=== PATIENT | female | born 1955 | race Caucasian/White ===

== ENCOUNTER → 2016-05-26 | Outpatient (REF) | payer OTHER | LOC: M LAB REF 11:46 | PROVIDERS: ATTEND Internal Medicine Gastroenterology | DX: A04.7 Enterocolitis due to Clostridium difficile (principal); R19.7 Diarrhea, unspecified; R10.31 Right lower quadrant pain; Z86.010 Personal history of colon polyps ==

== ENCOUNTER → 2016-05-26 | Outpatient (CLI) | payer OTHER | LOC: M LAB 11:46 | PROVIDERS: ATTEND Nurse Practitioner Family | DX: E11.9 Type 2 diabetes mellitus without complications (principal); E78.4 Other hyperlipidemia; E55.9 Vitamin D deficiency, unspecified ==

== ENCOUNTER → 2016-09-01 | Outpatient (CLI) | payer OTHER ==
[2016-09-01 13:05] LABS: MEAN CORPUSCULAR HEMOGLOBIN 30.7 pg (27.0-33.0); MEAN CORPUSCULAR HGB CONC 33.6 g/dl (32.0-36.5); MEAN CORPUSCULAR VOLUME 91.4 fl (80.0-96.0); RED CELL DISTRIBUTION WIDTH 12.2 % (11.5-14.5); WHITE BLOOD COUNT 5.6 K/mm3 (4.0-10.0)
[2016-09-01 13:25] LABS: ALBUMIN 3.4 GM/DL (3.2-5.2); ALBUMIN/GLOBULIN RATIO 1.17 (1.00-1.93); ALKALINE PHOSPHATASE 97 U/L (45-117); ALT/SGPT 38 U/L (12-78); ANION GAP 6 MEQ/L (8-16); AST/SGOT 28 U/L (15-37); BILIRUBIN,TOTAL 0.6 MG/DL (0.2-1.0); BLOOD UREA NITROGEN 17 MG/DL (7-18); CALCIUM LEVEL 8.1 MG/DL (8.8-10.2); CARBON DIOXIDE LEVEL 29 MEQ/L (21-32); CHLORIDE LEVEL 109 MEQ/L (98-107); CHOLESTEROL LEVEL 148 MG/DL (<200); CREATININE FOR GFR 0.96 MG/DL (0.55-1.02); GLOMERULAR FILTRATION RATE > 60.0 (>45); GLUCOSE, FASTING 86 MG/DL (80-110); POTASSIUM SERUM 3.7 MEQ/L (3.5-5.1); SODIUM LEVEL 144 MEQ/L (136-145); TOTAL PROTEIN 6.3 GM/DL (6.4-8.2); TRIGLYCERIDES LEVEL 119 MG/DL (<150)
== END ==
LOC: M WUC 10:53
PROVIDERS: ATTEND Nurse Practitioner Family
DX: K21.9 Gastro-esophageal reflux disease without esophagitis (principal); E11.9 Type 2 diabetes mellitus without complications; I10 Essential (primary) hypertension; E78.4 Other hyperlipidemia; E55.9 Vitamin D deficiency, unspecified

== ENCOUNTER → 2016-09-17 | Outpatient (REF) | payer OTHER ==
[2016-09-17 17:58] LABS: FOLATE 18.7 NG/ML (>5.4); VITAMIN B12 LEVEL 361 PG/ML (247-911)
[2016-09-17 18:03] LABS: FERRITIN 109 NG/ML (8-252); PERCENT SATURATION 22.6 % (13.2-37.4); T UPTAKE 32 % (30-39); THYROXINE (T4) 9.5 UG/DL (4.5-12.0); TOTAL IRON BINDING CAPACITY 358 UG/DL (250-450)
[2016-09-17 18:27] LABS: MEAN CORPUSCULAR HEMOGLOBIN 30.9 pg (27.0-33.0); MEAN CORPUSCULAR HGB CONC 33.5 g/dl (32.0-36.5); MEAN CORPUSCULAR VOLUME 92.4 fl (80.0-96.0); RED CELL DISTRIBUTION WIDTH 12.3 % (11.5-14.5); RETIC HEMOGLOBIN CONTENT CHr 32.5 PG (24-36); RETICULOCYTE % ADVIA2120 2.2 % (0.5-1.5); WHITE BLOOD COUNT 8.6 K/mm3 (4.0-10.0)
[2016-09-18 09:36] LABS: CONTROL LINE MONO INT CTR LINE PRESENT
== END ==
LOC: M SFHCCLAY 09:32
PROVIDERS: ATTEND Nurse Practitioner Family
DX: D64.9 Anemia, unspecified (principal); R53.83 Other fatigue

== ENCOUNTER → 2017-01-08 | Outpatient (CLI) | payer OTHER ==
[2017-01-08 13:21] LABS: MEAN CORPUSCULAR HEMOGLOBIN 30.4 pg (27.0-33.0); MEAN CORPUSCULAR HGB CONC 33.2 g/dl (32.0-36.5); MEAN CORPUSCULAR VOLUME 91.7 fl (80.0-96.0); RED CELL DISTRIBUTION WIDTH 12.1 % (11.5-14.5); WHITE BLOOD COUNT 6.6 K/mm3 (4.0-10.0)
[2017-01-08 13:57] LABS: ALT/SGPT 38 U/L (12-78); ANION GAP 11 MEQ/L (8-16); BLOOD UREA NITROGEN 15 MG/DL (7-18); CALCIUM LEVEL 8.4 MG/DL (8.8-10.2); CARBON DIOXIDE LEVEL 25 MEQ/L (21-32); CHLORIDE LEVEL 110 MEQ/L (98-107); CREATININE FOR GFR 0.83 MG/DL (0.55-1.02); GLOMERULAR FILTRATION RATE > 60.0 (>45); GLUCOSE, FASTING 111 MG/DL (80-110); POTASSIUM SERUM 4.1 MEQ/L (3.5-5.1); SODIUM LEVEL 146 MEQ/L (136-145)
== END ==
LOC: M LAB 11:52
PROVIDERS: ATTEND Family Medicine
DX: E11.9 Type 2 diabetes mellitus without complications (principal)

== ENCOUNTER → 2017-01-08 | Outpatient (CLI) | payer OTHER ==
--- NOTE | 2017-01-08 11:01 | REP ---
Chest two views HISTORY: Preop Comparison: 11/06/2007 The lungs are clear. The heart is normal in size. The pulmonary vasculature is normal in appearance. Bilateral cervical ribs are present. The bony structure is intact. IMPRESSION: No acute disease.
== END ==
LOC: M CLY 10:31
PROVIDERS: ATTEND Family Medicine
DX: E11.9 Type 2 diabetes mellitus without complications (principal)

== ENCOUNTER → 2017-01-08 | Outpatient (REF) | payer OTHER | LOC: M SFHCCLAY 09:34 | PROVIDERS: ATTEND Family Medicine | DX: E11.9 Type 2 diabetes mellitus without complications (principal); D64.9 Anemia, unspecified ==

== ENCOUNTER → 2017-03-13 | Outpatient (CLI) | payer OTHER ==
--- NOTE | 2017-03-13 10:56 | REP ---
Right upper quadrant sonography: History: Hemangioma of the liver. Comparison hepatic sonography February 15, 2015. Findings: Scanning through right upper quadrant of the abdomen demonstrates multiple mobile calculi in the gallbladder as previously reported. The common bile duct is normal measuring 0.5 cm in greatest diameter. There is evidence of fatty infiltration again noted. No pancreatic abnormalities observed. No significant right renal abnormality or free fluid seen. The right kidney measures 12.5 x 6.5 x 5.4 cm. In the left lobe there is a slightly hypoechoic lesion measuring 5.3 x 3.5 x 3.5 cm. In the right lobe there is a heterogeneous mixed echogenicity predominantly hyperechoic lesion measuring 9.1 x 10.8 x 6.7 cm. These are felt to be unchanged from previous ultrasound imaging studies. By previous history of these have been diagnosed as hemangiomas in the past. Their diameters are similar to April 07, 2014 ultrasound report as well. No new mass lesion is seen in the liver. Impression: 1. Two stable hepatic masses previously diagnosed as hemangioma. 2. Cholelithiasis. 3. Fatty infiltration of the liver. Otherwise unremarkable. Signed by Serjio Ndiaye MD 03/13/2017 01:13 P
== END ==
LOC: M RAD 08:50
PROVIDERS: ATTEND Internal Medicine Gastroenterology
DX: D18.03 Hemangioma of intra-abdominal structures (principal); D64.9 Anemia, unspecified; R19.7 Diarrhea, unspecified; K76.0 Fatty (change of) liver, not elsewhere classified; K80.20 Calculus of gallbladder without cholecystitis without obstruction

== ENCOUNTER → 2017-04-19 | Outpatient (REF) | payer OTHER | LOC: M LAB REF 18:11 | PROVIDERS: ATTEND Physician Assistant | DX: R30.0 Dysuria (principal) ==

== ENCOUNTER 2017-05-15 09:30 | Outpatient (RCR) | payer OTHER | END 2017-06-03 | LOC: M PT 09:30 | DX: Z51.89 Encounter for other specified aftercare (principal); M75.42 Impingement syndrome of left shoulder; M75.102 Unspecified rotator cuff tear or rupture of left shoulder, not specified as traumatic | CPT/HCPCS: 97140 ==

== ENCOUNTER → 2017-06-01 | Outpatient (CLI) | payer OTHER ==
[2017-06-01 13:13] LABS: CHOLESTEROL LEVEL 147 MG/DL (<200); CHOLESTEROL RISK RATIO 2.491 (<5); HDL CHOLESTEROL 59 MG/DL (>40); LDL CHOLESTEROL 64.2 MG/DL (<100); NON-HDL-C 88 MG/DL; TRIGLYCERIDES LEVEL 119 MG/DL (<150)
[2017-06-01 13:18] LABS: ESTIMATED AVERAGE GLUCOSE 120 MG/DL (60-110); HEMOGLOBIN A1c 5.8 %
[2017-06-01 13:26] LABS: TOTAL 25(OH) VITAMIN D 46.4 NG/ML (30.0-100.0)
[2017-06-01 13:27] LABS: MALB URINE SIEMENS 7.9 MG/L; MAU/CREAT RATIO 5.3 MCG/MG (0.0-30.0); TOTAL PROTEIN,RANDOM URINE 10.2 MG/DL (0.0-12.0)
== END ==
LOC: M WUC 10:08
DX: E55.9 Vitamin D deficiency, unspecified (principal); E78.4 Other hyperlipidemia; E11.9 Type 2 diabetes mellitus without complications
CPT/HCPCS: 83036

== ENCOUNTER 2017-06-19 12:41 | Outpatient (RCR) | payer OTHER | END 2017-07-01 | LOC: M PT 12:41 | DX: Z51.89 Encounter for other specified aftercare (principal); M75.42 Impingement syndrome of left shoulder; M25.512 Pain in left shoulder; M75.102 Unspecified rotator cuff tear or rupture of left shoulder, not specified as traumatic | CPT/HCPCS: 97140 ==

== ENCOUNTER → 2017-10-04 | Outpatient (CLI) | payer OTHER ==
[2017-10-04 17:52] LABS: HEMATOCRIT 32.7 % (36.0-47.0); HEMOGLOBIN 10.9 g/dl (12.0-15.5); MEAN CORPUSCULAR HEMOGLOBIN 30.2 pg (27.0-33.0); MEAN CORPUSCULAR HGB CONC 33.3 g/dl (32.0-36.5); MEAN CORPUSCULAR VOLUME 90.6 fl (80.0-96.0); PLATELET COUNT, AUTOMATED 330 10^3/uL (150-450); RED BLOOD COUNT 3.61 10^6/uL (4.00-5.40); RED CELL DISTRIBUTION WIDTH 12.1 % (11.5-14.5); WHITE BLOOD COUNT 9.8 10^3/uL (4.0-10.0)
[2017-10-04 18:03] LABS: ALBUMIN 3.7 GM/DL (3.2-5.2); ALBUMIN/GLOBULIN RATIO 1.16 (1.00-1.93); ALKALINE PHOSPHATASE 77 U/L (45-117); ALT/SGPT 33 U/L (12-78); ANION GAP 10 MEQ/L (8-16); AST/SGOT 24 U/L (7-37); BILIRUBIN,TOTAL 0.9 MG/DL (0.2-1.0); BLOOD UREA NITROGEN 20 MG/DL (7-18); CALCIUM LEVEL 9.1 MG/DL (8.8-10.2); CARBON DIOXIDE LEVEL 26 MEQ/L (21-32); CHLORIDE LEVEL 108 MEQ/L (98-107); CHOLESTEROL LEVEL 153 MG/DL (<200); CHOLESTEROL RISK RATIO 3.326 (<5); CREATININE FOR GFR 0.89 MG/DL (0.55-1.30); GLOMERULAR FILTRATION RATE > 60.0 (>45); GLUCOSE, FASTING 91 MG/DL (70-100); HDL CHOLESTEROL 46 MG/DL (>40); NON-HDL-C 107 MG/DL; POTASSIUM SERUM 3.5 MEQ/L (3.5-5.1); SODIUM LEVEL 144 MEQ/L (136-145); TOTAL PROTEIN 6.9 GM/DL (6.4-8.2); TRIGLYCERIDES LEVEL 155 MG/DL (<150)
[2017-10-04 19:34] LABS: ESTIMATED AVERAGE GLUCOSE 123 MG/DL (60-110); HEMOGLOBIN A1c 5.9 %
[2017-10-05 10:35] LABS: TOTAL 25(OH) VITAMIN D 26.7 NG/ML (30.0-100.0)
== END ==
LOC: M WUC 10:38
DX: I10 Essential (primary) hypertension (principal); E11.9 Type 2 diabetes mellitus without complications; E78.4 Other hyperlipidemia; E55.9 Vitamin D deficiency, unspecified
CPT/HCPCS: 80053

== ENCOUNTER 2017-10-07 10:46 | Outpatient (RCR) | payer OTHER | END 2017-10-31 | LOC: M PT 10:46 | DX: Z51.89 Encounter for other specified aftercare (principal); S46.002D Unspecified injury of muscle(s) and tendon(s) of the rotator cuff of left shoulder, subsequent encounter | CPT/HCPCS: 97163 ==

== ENCOUNTER → 2017-11-07 | Outpatient (CLI) | payer OTHER ==
[2017-11-07 19:32] LABS: FERRITIN 109 NG/ML (8-252); IRON (FE) 102 UG/DL (50-170); PERCENT SATURATION 28.5 % (13.2-45.0); TOTAL IRON BINDING CAPACITY 358 UG/DL (250-450)
[2017-11-07 19:37] LABS: HEMATOCRIT 34.9 % (36.0-47.0); HEMOGLOBIN 11.5 g/dl (12.0-15.5); MEAN CORPUSCULAR HEMOGLOBIN 30.2 pg (27.0-33.0); MEAN CORPUSCULAR VOLUME 91.6 fl (80.0-96.0); PLATELET COUNT, AUTOMATED 249 10^3/uL (150-450); RED BLOOD COUNT 3.81 10^6/uL (4.00-5.40); RED CELL DISTRIBUTION WIDTH 12.2 % (11.5-14.5); RETICULOCYTE # 77.3 10^9/L (17-77); WHITE BLOOD COUNT 6.4 10^3/uL (4.0-10.0)
[2017-11-09 10:45] LABS: VITAMIN B12 LEVEL 331 PG/ML (247-911)
[2017-11-09 10:46] LABS: FOLATE 15.9 NG/ML (>5.4)
== END ==
LOC: M WUC 14:14
DX: D64.9 Anemia, unspecified (principal)
CPT/HCPCS: 82746

== ENCOUNTER → 2018-02-15 | Outpatient (CLI) | payer OTHER | LOC: M WUC 16:10 | DX: M79.661 Pain in right lower leg (principal) ==

== ENCOUNTER → 2018-02-20 | Outpatient (CLI) | payer OTHER ==
[2018-02-20 12:42] LABS: HEMATOCRIT 34.6 % (36.0-47.0); HEMOGLOBIN 11.6 g/dl (12.0-15.5); MEAN CORPUSCULAR HEMOGLOBIN 30.2 pg (27.0-33.0); MEAN CORPUSCULAR HGB CONC 33.5 g/dl (32.0-36.5); MEAN CORPUSCULAR VOLUME 90.1 fl (80.0-96.0); PLATELET COUNT, AUTOMATED 249 10^3/uL (150-450); RED BLOOD COUNT 3.84 10^6/uL (4.00-5.40); RETIC HEMOGLOBIN EQUIVALENT 34.5 pg (24-36); RETICULOCYTE % 1.9 % (0.5-1.5); WHITE BLOOD COUNT 5.3 10^3/uL (4.0-10.0)
[2018-02-20 13:00] LABS: FERRITIN 111 NG/ML (8-252); IRON (FE) 63 UG/DL (50-170); PERCENT SATURATION 17.1 % (13.2-45.0); TOTAL IRON BINDING CAPACITY 368 UG/DL (250-450)
[2018-02-22 10:12] LABS: FOLATE 19.1 NG/ML (>5.4)
== END ==
LOC: M WUC 08:18
DX: R42 Dizziness and giddiness (principal); I10 Essential (primary) hypertension; E78.2 Mixed hyperlipidemia; E11.9 Type 2 diabetes mellitus without complications; E55.9 Vitamin D deficiency, unspecified
CPT/HCPCS: 82746

== ENCOUNTER 2018-04-07 10:48 | Outpatient (RCR) | payer OTHER | END 2018-05-03 | LOC: M PT 10:48 | PROVIDERS: ATTEND Orthopaedic Surgery | DX: Z47.89 Encounter for other orthopedic aftercare (principal); M75.42 Impingement syndrome of left shoulder; M25.512 Pain in left shoulder; M75.102 Unspecified rotator cuff tear or rupture of left shoulder, not specified as traumatic ==

== ENCOUNTER → 2018-05-06 | Outpatient (REF) | payer OTHER ==
[~2018-05-06] MED LIST: ASPI1TAB PO; FENO48TA2 PO; FLON1SPR; IBUP80TA PO; LOSA100T5 PO; PROAAER10 INH; RANI15TA PO; REFR0.1D OD; XIID5DRO OS; ZOLO25TA PO
[2018-05-06 17:38] LABS: HEMATOCRIT 38.9 % (36.0-47.0); HEMOGLOBIN 13.2 g/dl (12.0-15.5); MEAN CORPUSCULAR HEMOGLOBIN 30.4 pg (27.0-33.0); MEAN CORPUSCULAR HGB CONC 33.9 g/dl (32.0-36.5); MEAN CORPUSCULAR VOLUME 89.6 fl (80.0-96.0); PLATELET COUNT, AUTOMATED 324 10^3/uL (150-450); RED BLOOD COUNT 4.34 10^6/uL (4.00-5.40); WHITE BLOOD COUNT 6.7 10^3/uL (4.0-10.0)
[2018-05-06 17:46] LABS: ALBUMIN 3.9 GM/DL (3.2-5.2); ALT/SGPT 41 U/L (12-78); BILIRUBIN,TOTAL 0.8 MG/DL (0.2-1.0); BLOOD UREA NITROGEN 21 MG/DL (7-18); CALCIUM LEVEL 9.2 MG/DL (8.8-10.2); CARBON DIOXIDE LEVEL 26 MEQ/L (21-32); CHLORIDE LEVEL 106 MEQ/L (98-107); CHOLESTEROL LEVEL 257 MG/DL (<200); CHOLESTEROL RISK RATIO 4.079 (<5); CREATININE FOR GFR 0.94 MG/DL (0.55-1.30); GLOMERULAR FILTRATION RATE > 60.0 (>45); GLUCOSE, FASTING 98 MG/DL (70-100); HDL CHOLESTEROL 63 MG/DL (>40); LDL CHOLESTEROL 148 MG/DL (<100); NON-HDL-C 194 MG/DL; SODIUM LEVEL 141 MEQ/L (136-145); TOTAL PROTEIN 7.3 GM/DL (6.4-8.2); TRIGLYCERIDES LEVEL 231 MG/DL (<150)
[2018-05-06 17:55] LABS: TOTAL 25(OH) VITAMIN D 26.6 NG/ML (30.0-100.0)
[2018-05-06 19:28] LABS: HEMOGLOBIN A1c 5.8 %
[2018-05-06 19:29] LABS: MALB URINE SIEMENS 7.2 MG/L; MAU/CREAT RATIO 5.7 MCG/MG (0.0-30.0)
== END ==
LOC: M SFHCCLAY 10:49
PROVIDERS: ATTEND Nurse Practitioner Family
DX: Z01.818 Encounter for other preprocedural examination (principal); I10 Essential (primary) hypertension; E11.9 Type 2 diabetes mellitus without complications; E78.49 Other hyperlipidemia; E55.9 Vitamin D deficiency, unspecified

== ENCOUNTER → 2018-05-06 | Outpatient (CLI) | payer OTHER ==
--- NOTE | 2018-05-06 20:41 | REP ---
Clinical: Preoperative assessment . Comparison: 01/08/2017 . Technique: PA and lateral. Findings: The mediastinum and cardiac silhouette are normal. The lung klein are clear and without acute consolidation, effusion, or pneumothorax. The skeletal structures are intact and normal. Impression: 1. No acute cardiopulmonary process. Electronically Signed by Ulysses Floyd MD 05/06/2018 08:33 P
== END ==
LOC: M CLY 10:54
PROVIDERS: ATTEND Nurse Practitioner Family
DX: Z01.818 Encounter for other preprocedural examination (principal)

== ENCOUNTER 2018-05-24 06:02 | Day surgery (SDC) | payer OTHER ==
[~2018-05-24] VITALS: Ht 167.6 cm; Wt 88.5 kg
[~2018-05-24 06:02] MED LIST changes: +LR 1,000 ML IV ONE; +ceFAZolin SOD 1 GM in D5W MINI-BAG PLUS 50 ML IV ONE
[2018-05-24] MEDS ORDERED: fentaNYL 250 MCG/5 ML INJECTION (J3010) As Ordered ONE (07:08)
[2018-05-24] MEDS ORDERED: dexameTHASONE 4 MG/ML 1ML VIAL (J1100) As Ordered ONE (07:08)
[2018-05-24] MEDS ORDERED: MIDAZOLAM INJ 2 MG/2 ML VIAL (J2250) As Ordered ONE (07:08)
[2018-05-24] MEDS ORDERED: ONDANSETRON 4MG/2ML VIAL (J2405) As Ordered ONE (07:08)
[2018-05-24] MEDS ORDERED: ROCURONIUM BROMIDE 50 MG/5 ML VIAL As Ordered ONE (07:09)
[2018-05-24] MEDS ORDERED: PROPOFOL 200 MG/20 ML VIAL As Ordered ONE (07:09)
[2018-05-24] MEDS ORDERED: LIDOCAINE 2% INJ 100 MG/5 ML SDV (FOR ANES.) As Ordered ONE (07:09)
[2018-05-24] MEDS ORDERED: LIDOCAINE W/EPINEPHRINE 1% 20ML VIAL As Ordered ONE (07:13)
[2018-05-24] MEDS ORDERED: LIDOCAINE 1% MDV 20ML VIAL As Ordered ONE (07:13)
[2018-05-24] MEDS ORDERED: BACITRACIN OINT 30GM As Ordered ONE (07:13)
[2018-05-24] MEDS ORDERED: LIDOCAINE 2% W/EPIN INJ 20ML **PRES FREE As Ordered ONE (07:13)
[2018-05-24] MEDS ORDERED: KETOROLAC 60 MG/2 ML VIAL (J1885) As Ordered ONE (08:09)
--- NOTE | 2018-05-24 08:52 | POST-OPPD ---
Postoperative Procedure Note Date Of Procedure: May 24, 2018 PREOPERATIVE DIAGNOSIS: Lower lip mass POSTOPERATIVE DIAGNOSIS: same FINDINGS: 1 cm lower lip mass PROCEDURE: Excision lower lip mass SURGEON: Dr Baugh GROUND SERVICE EQUIPMENT MECHANIC: none ANESTHESIA: Local with sedation SPECIMENS: lower lip mass ESTIMATED BLOOD LOSS: 1 cc REPLACED: none DRAINS: none COMPLICATIONS: none POSTOPERATIVE CONDITION: Stable to ASU HARVINDER BAUGH DO May 24, 2018 08:52
[2018-05-24 09:25] VITALS: BP 128/62
--- NOTE | 2018-05-25 14:06 | RO ---
DATE OF PROCEDURE: 05/24/2018 PREPROCEDURE DIAGNOSIS: Lower lip mass. POSTPROCEDURE DIAGNOSIS: Lower lip mass. PROCEDURE: Excision of lower lip mass. SURGEON: Dr. Fuad Sher. TRAVEL MANAGER: None. ANESTHESIA: Local with sedation. SPECIMEN SENT: Lower lip mass. ESTIMATED BLOOD LOSS: 1 mL. COMPARISON: None. Patient stable to the recovery room. DESCRIPTION OF PROCEDURE: This is a 62-year-old female who developed gradually growing lower lip mass that was becoming visible right on her lower lip right at the lip border measuring 1 x 1. Patient wished to have it excised. The risk and benefits and alternatives were discussed with the patient and she is ready to proceed. She presented to the operating room. Preoperative antibiotics were given. The sequential stockings were placed on the lower calves. Sedation given to the patient. She was prepped and draped in the usual sterile fashion. We gave her a mantle block with 2% with epinephrine and a little infiltration around the lip. The elliptical incision was created through the most prominent portion of the mass in a vertical fashion, along the lip creases. The incision carried out using 10-blade. A hard mass was identified which looks like a scar but I was able to extract it using blunt and sharp dissection. The orbicularis muscle is intact in good condition. The wound was irrigated and then the edges were approximated with #5-0 chromic sutures. The subcuticular layer with interrupted, dermis was closed with interrupted #6-0 plain suture. The small dog ear was excised as well and sent for the pathology. Minimal bleeding. Patient tolerated the procedure well and was sent to the recovery room in stable condition.
== END 2018-05-24 09:50 | disposition home or self-care (01) ==
LOC: M SDC 06:02
PROVIDERS: ATTEND Plastic Surgery Surgery of the Hand
DX: D18.09 Hemangioma of other sites (principal); I10 Essential (primary) hypertension; E78.00 Pure hypercholesterolemia, unspecified; K80.20 Calculus of gallbladder without cholecystitis without obstruction; K21.9 Gastro-esophageal reflux disease without esophagitis; D64.9 Anemia, unspecified; J45.990 Exercise induced bronchospasm; I89.0 Lymphedema, not elsewhere classified; E73.9 Lactose intolerance, unspecified; Z88.1 Allergy status to other antibiotic agents; Z88.5 Allergy status to narcotic agent; Z79.899 Other long term (current) drug therapy; Z79.82 Long term (current) use of aspirin; Z86.19 Personal history of other infectious and parasitic diseases; Z90.710 Acquired absence of both cervix and uterus
CPT/HCPCS: 11442; 88305; J0690; J1100; J1885; J2250; J2405; J3010

== ENCOUNTER → 2018-07-12 | Outpatient (REF) | payer MEDICARE, OTHER ==
[~2018-07-12] MED LIST changes: -LR 1,000 ML IV ONE; -ceFAZolin SOD 1 GM in D5W MINI-BAG PLUS 50 ML IV ONE
== END ==
LOC: M SFHCCLAY 11:01
PROVIDERS: ATTEND Family Medicine
DX: E78.49 Other hyperlipidemia (principal); Z53.8 Procedure and treatment not carried out for other reasons

== ENCOUNTER → 2018-07-14 | Outpatient (REF) | payer MEDICARE, OTHER ==
[2018-07-14 11:58] LABS: CHOLESTEROL RISK RATIO 3.137 (<5)
== END ==
LOC: M SFHCCLAY 08:07
PROVIDERS: ATTEND Family Medicine
DX: I10 Essential (primary) hypertension (principal); E78.49 Other hyperlipidemia

== ENCOUNTER → 2018-07-23 | Outpatient (CLI) | payer MEDICARE, OTHER ==
[~2018-07-23] MED LIST changes: -ASPI1TAB PO; +ASPI81TA26 PO
--- NOTE | 2018-07-23 11:59 | REP ---
CERVICAL SPINE, EIGHT VIEWS: HISTORY: Neck and right arm pain. The cervical spine is visualized from C1 to the C5-6 level in the lateral radiographs. There is no acute fracture or subluxation. The C3-4 through C5-6 intervertebral discs are decreased in height consistent with disc degeneration. Osteophytes are present on C5 and 6. There is narrowing of the C4 and 5 neural foramina secondary to uncinate process hypertrophy. IMPRESSION: Degenerative change as described above.
== END ==
LOC: M CLY 08:52
PROVIDERS: ATTEND Nurse Practitioner Family
DX: M50.31 Other cervical disc degeneration, high cervical region (principal); M50.321 Other cervical disc degeneration at C4-C5 level; M50.322 Other cervical disc degeneration at C5-C6 level; M25.78 Osteophyte, vertebrae
CPT/HCPCS: 72050; G0463

== ENCOUNTER → 2018-09-03 | Outpatient (CLI) | payer MEDICARE, OTHER ==
[2018-09-03 13:16] LABS: ALBUMIN 3.8 GM/DL (3.2-5.2); BILIRUBIN,DIRECT 0.1 MG/DL (0.0-0.2); BILIRUBIN,TOTAL 0.6 MG/DL (0.2-1.0); TOTAL PROTEIN 6.7 GM/DL (6.4-8.2)
== END ==
LOC: M WUC 11:13
PROVIDERS: ATTEND Internal Medicine Gastroenterology
DX: D18.03 Hemangioma of intra-abdominal structures (principal); Z86.010 Personal history of colon polyps; E73.9 Lactose intolerance, unspecified

== ENCOUNTER 2018-10-20 10:41 | Outpatient (RCR) | payer MEDICARE, OTHER | END 2018-10-31 | LOC: M PT 10:41 | PROVIDERS: ATTEND Orthopaedic Surgery | DX: M75.42 Impingement syndrome of left shoulder (principal); M25.512 Pain in left shoulder; M75.102 Unspecified rotator cuff tear or rupture of left shoulder, not specified as traumatic ==

== ENCOUNTER → 2018-11-19 | Outpatient (CLI) | payer MEDICARE, OTHER ==
--- NOTE | 2018-11-19 10:20 | REP ---
PA and lateral chest: Comparison is 05/06/2018. The lung klein are clear. The cardiac size is normal. The rafaela, mediastinum, and skeletal structures are unremarkable. There is an orthopedic anchor screw in the left humeral head, unchanged. Impression: Negative PA and lateral chest. There is no interval change. Electronically Signed by Rodrigo Almazan MD 11/19/2018 10:12 A
== END ==
LOC: M CLY 09:10
PROVIDERS: ATTEND Nurse Practitioner Family
DX: J40 Bronchitis, not specified as acute or chronic (principal)
CPT/HCPCS: 71046; G0463

== ENCOUNTER → 2019-02-16 | Outpatient (CLI) | payer MEDICARE, OTHER ==
[~2019-02-16] MED LIST changes: +FENO48TA13 PO; -FENO48TA2 PO
--- NOTE | 2019-02-16 11:30 | REP ---
Five views lumbar spine: 02/16/2019. Indication: New low back pain. Pain. Comparison: None. New new findings: There is no fracture, subluxation or dislocation. Surgical clips are noted anterior to the L5 vertebral body. Endplate degenerative changes are present throughout most pronounced at L4/L5. The neural foramen appear patent. Impression: No fracture. Electronically Signed by Justyn Rossi DO 02/16/2019 11:22 A
--- NOTE | 2019-02-16 14:47 | REP ---
REASON FOR EXAM: Pain. COMPARISON EXAMINATION: 02/15/2018. There is no history of trauma. FINDINGS: No acute fracture or destructive osseous lesion. There is no change compared to the prior exam. Note is made of a large retrocalcaneal heel spur. Electronically Signed by Scott Lomeli DO 02/16/2019 02:57 P
== END ==
LOC: M CLY 10:10
PROVIDERS: ATTEND Nurse Practitioner Family
DX: M51.36 Other intervertebral disc degeneration, lumbar region (principal); M79.604 Pain in right leg
CPT/HCPCS: 72110; 73590; G0463

== ENCOUNTER → 2019-02-22 | Outpatient (CLI) | payer MEDICARE, OTHER ==
--- NOTE | 2019-02-23 08:36 | REP ---
MRI lumbar spine: 02/22/2019. Indication: Low back pain. Lumbar radiculopathy. Comparison: None. Technique: Short and long TR sequences of the lumbar spine were obtained without IV Gadolinium. Findings: There is minimal retrolisthesis of L2 and L3 and L3 and L4 as well as minimal anterolisthesis of L4 and L5. No worrisome marrow signal is present. The visualized spinal cord is unremarkable. No significant paraspinal soft tissue abnormalities are present. L1/L2: There is no disc herniation or significant spinal canal / neural foraminal narrowing. L2/L3: There is a posterior central disc extrusion superimposed on a diffuse disc bulge with 8 mm of caudal migration. There is moderate to severe bilateral recess narrowing, particularly on the left. Mild bilateral neural foraminal narrowing is present. L3/L4: Diffuse disc and spur complex and bilateral facet arthropathy are present with ligamental laxity. There is moderate to severe bilateral recess narrowing. Mild to moderate bilateral neural foraminal narrowing is present. L4/L5: There is a far right lateral disc extrusion with cephalad migration and compression of the exiting L4 nerve root best appreciated on the sagittal T1 sequence image/page 13. The disc herniation is superimposed on a diffuse disc bulge. Significant bilateral facet arthropathy is present with moderate to severe right greater than left recess narrowing. There is mild narrowing of the left neural foramen. L5/S1: Bilateral facet arthropathy is present without significant spinal canal or neural foraminal narrowing. Impression: Far right lateral L4/L5 disc herniation as described. Posterior central L2/L3 disc herniation as described. Additional multilevel degenerative sequelae. Please see above. Electronically Signed by Justyn Rossi DO 02/23/2019 08:29 A
== END ==
LOC: M RAD 17:36
PROVIDERS: ATTEND Nurse Practitioner Family
DX: M51.37 Other intervertebral disc degeneration, lumbosacral region (principal); M51.36 Other intervertebral disc degeneration, lumbar region; M25.78 Osteophyte, vertebrae; M51.26 Other intervertebral disc displacement, lumbar region; M54.41 Lumbago with sciatica, right side

== ENCOUNTER 2019-04-18 10:37 | Outpatient (RCR) | payer MEDICARE, OTHER | END 2019-05-03 | LOC: M PT 10:37 | PROVIDERS: ATTEND Orthopaedic Surgery | DX: M75.102 Unspecified rotator cuff tear or rupture of left shoulder, not specified as traumatic (principal); M75.42 Impingement syndrome of left shoulder; M25.512 Pain in left shoulder ==

== ENCOUNTER → 2019-06-16 | Outpatient (CLI) | payer MEDICARE, OTHER ==
[~2019-06-16] MED LIST changes: -FENO48TA13 PO; +FENO48TA7 PO
[2019-06-16 10:23] LABS: HEMATOCRIT 43.8 % (36.0-47.0); MEAN CORPUSCULAR HEMOGLOBIN 29.2 pg (27.0-33.0); MEAN CORPUSCULAR VOLUME 91.4 fl (80.0-96.0); PLATELET COUNT, AUTOMATED 369 10^3/uL (150-450); RED BLOOD COUNT 4.79 10^6/uL (4.00-5.40); WHITE BLOOD COUNT 12.2 10^3/uL (4.0-10.0)
[2019-06-16 10:53] LABS: ALBUMIN 3.5 GM/DL (3.2-5.2); ALT/SGPT 43 U/L (12-78); BILIRUBIN,TOTAL 0.7 MG/DL (0.2-1.0); BLOOD UREA NITROGEN 28 MG/DL (7-18); CALCIUM LEVEL 8.7 MG/DL (8.8-10.2); CARBON DIOXIDE LEVEL 28 MEQ/L (21-32); CHLORIDE LEVEL 104 MEQ/L (98-107); CHOLESTEROL LEVEL 193 MG/DL (<200); CHOLESTEROL RISK RATIO 2.443 (<5); CREATININE FOR GFR 0.96 MG/DL (0.55-1.30); FERRITIN 128 NG/ML (8-252); GLOMERULAR FILTRATION RATE > 60.0 (>45); GLUCOSE, FASTING 86 MG/DL (70-100); HDL CHOLESTEROL 79 MG/DL (>40); LDL CHOLESTEROL 88 MG/DL (<100); NON-HDL-C 114 MG/DL; POTASSIUM SERUM 3.6 MEQ/L (3.5-5.1); SODIUM LEVEL 140 MEQ/L (136-145); TOTAL PROTEIN 6.7 GM/DL (6.4-8.2); TRIGLYCERIDES LEVEL 129 MG/DL (<150)
[2019-06-16 11:01] LABS: MALB URINE SIEMENS 8.9 MG/L; MAU/CREAT RATIO 7.3 MCG/MG (0.0-30.0)
[2019-06-16 11:02] LABS: TOTAL 25(OH) VITAMIN D 34.6 NG/ML (30.0-100.0)
== END ==
LOC: M LAB 08:51
PROVIDERS: ATTEND Nurse Practitioner Family
DX: D64.9 Anemia, unspecified (principal); I10 Essential (primary) hypertension; E11.9 Type 2 diabetes mellitus without complications; E78.5 Hyperlipidemia, unspecified; E55.9 Vitamin D deficiency, unspecified; H90.A21 Sensorineural hearing loss, unilateral, right ear, with restricted hearing on the contralateral side

== ENCOUNTER → 2019-06-16 | Outpatient (CLI) | payer MEDICARE, OTHER ==
[2019-06-16 10:49] LABS: BLOOD UREA NITROGEN 28 MG/DL (7-18); CREATININE FOR GFR 0.98 MG/DL (0.55-1.30); GLOMERULAR FILTRATION RATE > 60.0 (>45)
== END ==
LOC: M LAB 09:02
PROVIDERS: ATTEND Otolaryngology
DX: H90.A21 Sensorineural hearing loss, unilateral, right ear, with restricted hearing on the contralateral side (principal)

== ENCOUNTER → 2019-06-17 | Outpatient (CLI) | payer MEDICARE, OTHER ==
[~2019-06-17] MED LIST changes: +PROHANCE 279.3MG/ML 15ML VIAL (A9576) As Ordered ONE; +PROHANCE 279.3MG/ML 5ML VIAL (A9576) As Ordered ONE
--- NOTE | 2019-06-17 17:31 | REPVR ---
PROCEDURE INFORMATION: Exam: MR Head Without and With Contrast; Internal Auditory Canals Exam date and time: 06/17/2019 4:04 PM Age: 63 years old Clinical indication: Other: Sudden hearing loss; Prior surgery; Surgery date: 6+ months; Surgery type: Removal of meningioma 10 plus years ago; Additional info: H90.42 hearing loss, snsrnrl hear loss, uni, left ear, TECHNIQUE: Imaging protocol: MR of the head without and with intravenous contrast. Exam focused on the internal auditory canals. 3D rendering: MIP and/or 3D reconstructed images were created by the technologist. Contrast material: PROHANCE; Contrast volume: 16 ml; Contrast route: IV; COMPARISON: No relevant prior studies available. FINDINGS: Brain: No acute infarct identified on the diffusion-weighted imaging. Areas of right frontal and temporal lobe encephalomalacia. Cerebral and cerebellar volume appear otherwise preserved for age. A few patchy foci of increased signal intensity in the deep white matter on the T2 weighted imaging most likely representing trace chronic small vessel ischemic change. No significant white matter disease for the patient's age. No evidence of residual or recurrent meningioma on the postcontrast imaging. Ventricles: There is ex vacuo enlargement of the temporal horn of the right lateral ventricle. Mastoid air cells: Unremarkable. No effusions. Internal auditory canals: Unremarkable. 7th and 8th cranial nerves are unremarkable. No abnormal masses. Bones/joints: Prior right craniotomy. IMPRESSION: 1. No acute intracranial abnormality. 2. No evidence of residual or recurrent meningioma. 3. No evidence of IAC or cerebellopontine angle mass. Electronically signed by: Eva Malik On 06/17/2019 17:30:56 PM
== END ==
LOC: M RAD 14:37
PROVIDERS: ATTEND Otolaryngology
DX: H90.42 Sensorineural hearing loss, unilateral, left ear, with unrestricted hearing on the contralateral side (principal)
CPT/HCPCS: 70553; A9576

== ENCOUNTER 2019-09-14 09:43 | Emergency (ER) | payer MEDICARE, OTHER ==
[~2019-09-14] VITALS: Ht 170.2 cm; Wt 99.7 kg
[~2019-09-14 09:43] MED LIST changes: -PROHANCE 279.3MG/ML 15ML VIAL (A9576) As Ordered ONE; -PROHANCE 279.3MG/ML 5ML VIAL (A9576) As Ordered ONE
[2019-09-14] MEDS ORDERED: CLAR10CA3 PO (10:10)
[2019-09-14] MEDS ORDERED: FLUV80TA (10:10)
[2019-09-14] MEDS ORDERED: VITA50005 (10:10)
[2019-09-14] MEDS ORDERED: BREO1INH (10:10)
[2019-09-14] MEDS ORDERED: TRIC145T22 PO (10:10)
[2019-09-14] MEDS ORDERED: GI COCKTAIL 50ML BTL(HYOSCYAMINE/MAALOX/LIDOCAINE VISCOUS)(1:3:1) PO ONE (10:15)
--- NOTE | 2019-09-14 11:47 | REP ---
CHEST, SINGLE VIEW: There is no evidence of acute infiltrate. No pleural effusion is seen. The heart is normal in size. The mediastinal silhouette is unremarkable. The visualized osseous structures are intact. IMPRESSION: No acute pulmonary disease. Electronically Signed by Rodrigo Brar MD 09/14/2019 12:50 P
[2019-09-14 12:47] LABS: BASO # 0.1 10^3/uL (0.0-0.2); BASO % 1.2 % (0.0-1.0); EOS # 0.3 10^3/uL (0.0-0.5); HEMATOCRIT 39.3 % (36.0-47.0); HEMOGLOBIN 13.2 g/dl (12.0-15.5); LYMPH # 1.4 10^3/uL (1.5-5.0); LYMPH % 19.7 % (24.0-44.0); MEAN CORPUSCULAR HEMOGLOBIN 29.9 pg (27.0-33.0); MEAN CORPUSCULAR HGB CONC 33.6 g/dl (32.0-36.5); MEAN CORPUSCULAR VOLUME 88.9 fl (80.0-96.0); MONO # 0.6 10^3/uL (0.0-0.8); MONO % 8.7 % (0.0-5.0); NEUTROPHILS # 4.8 10^3/uL (1.5-8.5); NEUTROPHILS % 66.1 % (36.0-66.0); PLATELET COUNT, AUTOMATED 294 10^3/uL (150-450); RED BLOOD COUNT 4.42 10^6/uL (4.00-5.40); WHITE BLOOD COUNT 7.3 10^3/uL (4.0-10.0)
[2019-09-14 12:58] LABS: INR 0.99; PROTHROMBIN TIME 12.8 SECONDS (11.8-14.0)
[2019-09-14 12:59] LABS: PARTIAL THROMBOPLASTIN TIME 24.5 SECONDS (25.0-38.4)
[2019-09-14 13:27] LABS: ALBUMIN 4.1 GM/DL (3.2-5.2); ALT/SGPT 40 U/L (12-78); BILIRUBIN,DIRECT 0.2 MG/DL (0.0-0.2); BILIRUBIN,TOTAL 0.7 MG/DL (0.2-1.0); BLOOD UREA NITROGEN 26 MG/DL (7-18); CALCIUM LEVEL 9.8 MG/DL (8.8-10.2); CARBON DIOXIDE LEVEL 26 MEQ/L (21-32); CHLORIDE LEVEL 108 MEQ/L (98-107); CK-MB VALUE MASS 4.1 NG/ML (<3.6); CPK CREATINE PHOSPHOKINASE 347 U/L (26-192); CREATININE FOR GFR 0.92 MG/DL (0.55-1.30); GLOMERULAR FILTRATION RATE > 60.0 (>45); GLUCOSE, FASTING 84 MG/DL (70-100); LIPASE 154 U/L (73-393); MB/CK RELATIVE INDEX 1.18 (< OR =4); NT-PRO BNP 61 PG/ML (<125); SODIUM LEVEL 142 MEQ/L (136-145); TROPONIN I < 0.02 NG/ML (< 0.10)
[2019-09-14] MEDS ORDERED: PANTOPRAZOLE 40MG VIAL (C9113 PER 1) IV ONE (14:00)
[2019-09-14 15:33] LABS: CK-MB VALUE MASS 3.7 NG/ML (<3.6); CPK CREATINE PHOSPHOKINASE 347 U/L (26-192); MB/CK RELATIVE INDEX 1.07 (< OR =4); TROPONIN I < 0.02 NG/ML (< 0.10)
[2019-09-14] MEDS ORDERED: PRIL20TA2 PO (15:51)
[2019-09-14 16:00] VITALS: BP 138/74
--- NOTE | 2019-09-15 22:02 | ECGEPIP ---
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
--- NOTE | 2019-09-15 22:07 | ECGEPIP ---
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
== END 2019-09-14 16:47 | disposition home or self-care (01) ==
LOC: M ED 09:43
DX: R07.89 Other chest pain (principal); I10 Essential (primary) hypertension; E78.5 Hyperlipidemia, unspecified; Z88.1 Allergy status to other antibiotic agents; Z88.5 Allergy status to narcotic agent; E73.9 Lactose intolerance, unspecified; Z79.899 Other long term (current) drug therapy; Z79.82 Long term (current) use of aspirin
CPT/HCPCS: 36415; 71045; 80048; 80076; 82550; 82553; 83690; 83880; 84443; 84484; 85025; 85610; 85730; 87040; 93005; 93041; 94760; 96374; 99285; C9113

== ENCOUNTER 2019-10-18 10:35 | Outpatient (RCR) | payer MEDICARE, OTHER ==
[~2019-10-18 10:35] MED LIST changes: +BREO1INH; +CLAR10CA3 PO; +FLUV80TA; +PRIL20TA2 PO; +TRIC145T22 PO; +VITA50005
== END 2019-11-01 | disposition home or self-care (01) ==
LOC: M PT 10:35
PROVIDERS: ATTEND Nurse Practitioner Family
DX: R22.32 Localized swelling, mass and lump, left upper limb (principal)

== ENCOUNTER → 2019-10-28 | Outpatient (CLI) | payer MEDICARE, OTHER ==
--- NOTE | 2019-10-28 10:47 | REP ---
RIGHT UPPER QUADRANT SONOGRAPHY: HISTORY: Hemangioma of the liver. Personal history colon polyps. Comparison sonography March 13, 2017. The 2017 study showed two stable hepatic masses which had been previously diagnosed as hemangiomas. Previous sonographies are available dating back to November 03, 2013. No comparison CT or MRI study is available. SONOGRAPHIC FINDINGS: Scanning through the right upper quadrant of the abdomen demonstrates echogenic gallstones with acoustic shadowing in the dependent portion of the gallbladder. Gallbladder wall is borderline in thickness 0.3 cm. Common bile duct is normal measuring 0.3 cm in diameter. There is a mass in the left lobe of the liver measuring 5.1 x 3.0 x 4.4 cm. This is heterogeneous and generally hyperechoic. There is another mass in the right lobe of the liver measuring 8.4 x 8.2 x 9.8 cm. This is also heterogeneously hyperechoic. No other focal hepatic mass lesion is seen. No pancreatic abnormality is observed. Pancreas is largely obscured by abdominal gas. There is no evidence of ascites or right renal abnormality. The right kidney measures 12.5 x 4.9 x 4.6 cm. IMPRESSION: There are two hepatic masses, one in the left lobe measuring 5.1 and the other in the right lobe measuring 9.8 cm diameter. These are felt to be unchanged from the comparison sonogram 2017 and consistent with the previously diagnosed hemangiomas. Cholelithiasis is also noted. Electronically Signed by Serjio Ndiaye MD 10/28/2019 11:03 A
== END ==
LOC: M RAD 07:19
PROVIDERS: ATTEND Internal Medicine Gastroenterology
DX: D18.03 Hemangioma of intra-abdominal structures (principal); R13.10 Dysphagia, unspecified; Z86.010 Personal history of colon polyps; R93.5 Abnormal findings on diagnostic imaging of other abdominal regions, including retroperitoneum; K64.8 Other hemorrhoids; K76.89 Other specified diseases of liver; K80.20 Calculus of gallbladder without cholecystitis without obstruction

== ENCOUNTER → 2019-11-12 | Outpatient (CLI) | payer MEDICARE, OTHER ==
--- NOTE | 2019-11-12 17:49 | REP ---
CHEST PA AND LATERAL: 11/12/2019. Comparison: 11/19/2018. Clinical history: Asthma. Findings: Two views are provided. Lung klein are well inflated. CP angles were sharply defined without effusion. There is some minor basilar interstitial changes suggesting some fibrosis. No lateral pleural thickening apical scar or pneumothorax. I see no acute infiltrate or parenchymal mass. The heart is not enlarged. Aorta is mildly tortuous. Airway intact and all of this stable. No widening the mediastinum. Bony thorax shows degenerative changes without acute compression deformity. Impression: 1. No acute cardiopulmonary change. Some chronic stable basilar fibrotic changes in the mildly calcified tortuous aorta. Nothing acute. 2. Incidental note of a postsurgical anchor in the left humeral head from prior shoulder surgery. Electronically Signed by Enrique Alfredo MD 11/12/2019 05:41 P
== END ==
LOC: M RAD 11:41
PROVIDERS: ATTEND Nurse Practitioner Family
DX: J45.909 Unspecified asthma, uncomplicated (principal)

== ENCOUNTER → 2019-12-21 | Outpatient (CLI) | payer MEDICARE, OTHER ==
--- NOTE | 2020-01-23 10:08 | REP ---
LEFT ELBOW SERIES HISTORY: Left lateral epicondylitis. FINDINGS: Four views of the left elbow demonstrate minimal spurring at the lateral epicondyle. No erosive change is seen. There is also mildly osteoarthritic spurring at the coronoid process of the proximal ulna. No evidence of joint effusion. IMPRESSION: Mild spurring as above. No acute bony abnormality. MTDD
== END ==
LOC: M WUC 15:34
PROVIDERS: ATTEND Physician Assistant
DX: M77.12 Lateral epicondylitis, left elbow (principal); M77.8 Other enthesopathies, not elsewhere classified

== ENCOUNTER → 2020-04-04 | Outpatient (CLI) | payer MEDICARE, OTHER | LOC: M CLY 10:19 | PROVIDERS: ATTEND Nurse Practitioner Family | DX: H92.01 Otalgia, right ear (principal) ==

== ENCOUNTER → 2020-04-06 | Outpatient (CLI) | payer MEDICARE, OTHER ==
--- NOTE | 2020-04-06 11:47 | REPVR ---
PROCEDURE INFORMATION: Exam: CT Temporal Bones Without Contrast. Exam date and time: 04/06/2020 11:27 AM Age: 64 years old Clinical indication: Pain; Other: Right mastoid; Additional info: Pain of right mastoid TECHNIQUE: Imaging protocol: Computed tomography images of the temporal bones without contrast. Radiation optimization: All CT scans at this facility use at least one of these dose optimization techniques: automated exposure control; mA and/or kV adjustment per patient size (includes targeted exams where dose is matched to clinical indication); or iterative reconstruction. COMPARISON: MRI IAC'S W/O FOLL WITH CON 06/17/2019 3:20 PM FINDINGS: Right inner ear: Normal. Right ossicles and middle ear: Normal. The middle ear ossicles are intact. Right external auditory canal: Normal. Right facial nerve canal: Normal. Right jugular foramen: No jugular dehiscence. Right carotid canal: No aberrent carotid canal. Right mastoid air cells: Normal. No mastoid effusions. Left inner ear: Normal. Left ossicles and middle ear: Normal. The middle ear ossicles are intact. Left external auditory canal: Normal. Left facial nerve canal: Normal. Left jugular foramen: No jugular dehiscence. Left carotid canal: No aberrent carotid canal. Left mastoid air cells: Normal. No mastoid effusions. Bones/joints: A right temporal craniotomy is noted. Soft tissues: Unremarkable. IMPRESSION: No acute abnormality. Electronically signed by: Igor Rivera On 04/06/2020 11:47:40 AM
== END ==
LOC: M RAD 11:15
PROVIDERS: ATTEND Nurse Practitioner Family
DX: H92.01 Otalgia, right ear (principal)

== ENCOUNTER → 2020-06-15 | Outpatient (CLI) | payer MEDICARE, OTHER ==
[2020-06-15 13:09] LABS: HEMOGLOBIN A1c 5.7 %
[2020-06-15 13:21] LABS: MALB URINE SIEMENS 11.5 MG/L; MAU/CREAT RATIO 6.3 MCG/MG (0.0-30.0)
[2020-06-15 13:33] LABS: ALBUMIN 3.6 GM/DL (3.2-5.2); ALT/SGPT 40 U/L (12-78); BILIRUBIN,TOTAL 0.5 MG/DL (0.2-1.0); BLOOD UREA NITROGEN 20 MG/DL (7-18); CALCIUM LEVEL 9.3 MG/DL (8.8-10.2); CARBON DIOXIDE LEVEL 26 MEQ/L (21-32); CHLORIDE LEVEL 105 MEQ/L (98-107); CHOLESTEROL LEVEL 155 MG/DL (<200); CREATININE FOR GFR 0.93 MG/DL (0.55-1.30); GLOMERULAR FILTRATION RATE > 60.0 (>45); GLUCOSE, FASTING 98 MG/DL (70-100); HDL CHOLESTEROL 61 MG/DL (>40); LDL CHOLESTEROL 74 MG/DL (<100); NON-HDL-C 94 MG/DL; POTASSIUM SERUM 3.9 MEQ/L (3.5-5.1); SODIUM LEVEL 139 MEQ/L (136-145); TOTAL 25(OH) VITAMIN D 55.6 NG/ML (30.0-100.0); TOTAL PROTEIN 6.7 GM/DL (6.4-8.2); TRIGLYCERIDES LEVEL 98 MG/DL (<150)
== END ==
LOC: M WUC 08:56
PROVIDERS: ATTEND Nurse Practitioner Family
DX: E11.8 Type 2 diabetes mellitus with unspecified complications (principal); I10 Essential (primary) hypertension; E78.5 Hyperlipidemia, unspecified; E55.9 Vitamin D deficiency, unspecified; Z79.899 Other long term (current) drug therapy

== ENCOUNTER 2020-07-17 10:45 | Outpatient (RCR) | payer MEDICARE, OTHER | END 2020-08-01 | disposition home or self-care (01) | LOC: M PT 10:45 | PROVIDERS: ATTEND Nurse Practitioner Family | DX: M75.42 Impingement syndrome of left shoulder (principal); M25.512 Pain in left shoulder; M75.102 Unspecified rotator cuff tear or rupture of left shoulder, not specified as traumatic ==

== ENCOUNTER → 2020-08-23 | Outpatient (REF) | payer MEDICARE, OTHER ==
[2020-08-23 17:03] LABS: CLOSTRIDIUM DIFFICILE PCR NEGATIVE (NEGATIVE)
== END ==
LOC: M LAB REF 15:44
PROVIDERS: ATTEND Student in an Organized Health Care Education/Training Program
DX: R13.10 Dysphagia, unspecified (principal); D18.03 Hemangioma of intra-abdominal structures; R93.5 Abnormal findings on diagnostic imaging of other abdominal regions, including retroperitoneum; Z86.010 Personal history of colon polyps

== ENCOUNTER → 2021-01-17 | Outpatient (CLI) | payer MEDICARE, OTHER ==
[~2021-01-17] MED LIST changes: +ERGO500029; -VITA50005
== END ==
LOC: M PT 09:41
PROVIDERS: ATTEND Orthopaedic Surgery
DX: I89.0 Lymphedema, not elsewhere classified (principal)

== ENCOUNTER → 2021-04-17 | Outpatient (REF) | payer MEDICARE, OTHER ==
[~2021-04-17] MED LIST changes: -FENO48TA7 PO; +FENO48TA8 PO
== END ==
LOC: M SFHCCLAY 08:45
PROVIDERS: ATTEND Physician Assistant
DX: R30.0 Dysuria (principal)
CPT/HCPCS: 81002; 87086; G0463

== ENCOUNTER → 2021-04-24 | Outpatient (CLI) | payer MEDICARE, OTHER ==
--- NOTE | 2021-04-24 15:10 | REP ---
INDICATION: VARICOSE VEINS OF BOTHLEGS COMPARISON: None. TECHNIQUE: Brar scale and color Doppler evaluation using linear high frequency transducer. FINDINGS: Ultrasound examination of the right and lower extremity deep venous structures from the common femoral vein through the popliteal vein demonstrates normal compressibility, flow and wave patterns in response to respiration and augmentation. Evaluation of the calf veins is incomplete due to body habitus and technical factors. There is no evidence for deep venous thrombosis. Right lower extremity demonstrates multiple collateral vessels involving the mid to distal greater saphenous vein with reflux flow into multiple varicosities. There is also evidence for reflux through the mid greater saphenous vein measuring 5 mm diameter with 6 seconds duration and reflux in the distal greater saphenous vein measuring 5 mm diameter with 9 seconds reflux duration. Reflux is also identified within the right popliteal vein 7 seconds duration. Left lower extremity demonstrates multiple collateral vessels involving the mid greater saphenous vein with reflux into varicosities. There is also evidence for reflux involving the proximal greater saphenous vein measuring 5 mm diameter with 9 seconds reflux duration, mid greater saphenous vein measuring 4 mm diameter with 6 seconds reflux duration. IMPRESSION: 1. No evidence for deep venous thrombosis. 2. Moderate reflux and varicosities primarily involving the bilateral greater saphenous veins. <Electronically signed by Ulysses Floyd > 04/24/21 [id number]
[2021-04-24 15:22] LABS: BASO # 0.1 10^3/uL (0.0-0.2); BASO % 1.1 % (0.0-1.0); EOS # 0.4 10^3/uL (0.0-0.5); EOS % 4.7 % (0.0-3.0); HEMATOCRIT 40.3 % (36.0-47.0); LYMPH # 1.8 10^3/uL (1.5-5.0); LYMPH % 19.6 % (24.0-44.0); MEAN CORPUSCULAR HEMOGLOBIN 29.1 pg (27.0-33.0); MEAN CORPUSCULAR HGB CONC 32.3 g/dl (32.0-36.5); MEAN CORPUSCULAR VOLUME 90.4 fl (80.0-96.0); MONO # 0.7 10^3/uL (0.0-0.8); MONO % 7.2 % (2.0-8.0); NEUTROPHILS # 6.1 10^3/uL (1.5-8.5); NEUTROPHILS % 67.1 % (36.0-66.0); PLATELET COUNT, AUTOMATED 301 10^3/uL (150-450); RED BLOOD COUNT 4.46 10^6/uL (4.00-5.40); WHITE BLOOD COUNT 9.1 10^3/uL (4.0-10.0)
[2021-04-24 15:58] LABS: ALBUMIN 3.9 GM/DL (3.2-5.2); ALT/SGPT 39 U/L (12-78); BILIRUBIN,TOTAL 0.6 MG/DL (0.2-1.0); BLOOD UREA NITROGEN 22 MG/DL (7-18); CALCIUM LEVEL 9.2 MG/DL (8.8-10.2); CARBON DIOXIDE LEVEL 28 MEQ/L (21-32); CHLORIDE LEVEL 108 MEQ/L (98-107); CHOLESTEROL LEVEL 192 MG/DL (<200); CREATININE FOR GFR 0.77 MG/DL (0.55-1.30); GLOMERULAR FILTRATION RATE > 60.0 (>45); GLUCOSE, FASTING 87 MG/DL (70-100); HDL CHOLESTEROL 60 MG/DL (>40); LDL CHOLESTEROL 90 MG/DL (<100); MAGNESIUM LEVEL 2.1 MG/DL (1.8-2.4); NON-HDL-C 132 MG/DL; POTASSIUM SERUM 4.1 MEQ/L (3.5-5.1); SODIUM LEVEL 141 MEQ/L (136-145); TOTAL PROTEIN 7.1 GM/DL (6.4-8.2); TRIGLYCERIDES LEVEL 209 MG/DL (<150)
[2021-04-24 16:40] LABS: HEMOGLOBIN A1c 5.6 %
== END ==
LOC: M RAD 13:49
PROVIDERS: ATTEND Nurse Practitioner Family
DX: E11.9 Type 2 diabetes mellitus without complications (principal); I10 Essential (primary) hypertension; E78.5 Hyperlipidemia, unspecified; E55.9 Vitamin D deficiency, unspecified; K21.9 Gastro-esophageal reflux disease without esophagitis; I83.893 Varicose veins of bilateral lower extremities with other complications

== ENCOUNTER 2021-07-18 10:00 | Outpatient (RCR) | payer MEDICARE, OTHER | END 2021-08-01 | LOC: M PT 10:00 | PROVIDERS: ATTEND Orthopaedic Surgery | DX: I89.0 Lymphedema, not elsewhere classified (principal) ==

== ENCOUNTER → 2021-10-17 | Outpatient (CLI) | payer MEDICARE, OTHER ==
[2021-10-17 13:08] LABS: BASO # 0.1 10^3/uL (0.0-0.2); BASO % 1.1 % (0.0-1.0); EOS # 0.3 10^3/uL (0.0-0.5); EOS % 4.6 % (0.0-3.0); HEMATOCRIT 39.2 % (36.0-47.0); HEMOGLOBIN 12.9 g/dl (12.0-15.5); LYMPH # 1.4 10^3/uL (1.5-5.0); LYMPH % 19.3 % (24.0-44.0); MEAN CORPUSCULAR HEMOGLOBIN 29.7 pg (27.0-33.0); MEAN CORPUSCULAR HGB CONC 32.9 g/dl (32.0-36.5); MEAN CORPUSCULAR VOLUME 90.3 fl (80.0-96.0); MONO # 0.6 10^3/uL (0.0-0.8); MONO % 7.9 % (2.0-8.0); NEUTROPHILS # 4.9 10^3/uL (1.5-8.5); NEUTROPHILS % 66.6 % (36.0-66.0); PLATELET COUNT, AUTOMATED 306 10^3/uL (150-450); RED BLOOD COUNT 4.34 10^6/uL (4.00-5.40); WHITE BLOOD COUNT 7.3 10^3/uL (4.0-10.0)
[2021-10-17 13:39] LABS: MALB URINE SIEMENS 24.9 MG/L; MAU/CREAT RATIO 8.5 MCG/MG (0.0-30.0)
[2021-10-17 13:40] LABS: ALBUMIN 3.8 GM/DL (3.2-5.2); ALT/SGPT 27 U/L (12-78); BILIRUBIN,TOTAL 0.7 MG/DL (0.2-1.0); BLOOD UREA NITROGEN 15 MG/DL (7-18); CALCIUM LEVEL 9.2 MG/DL (8.8-10.2); CARBON DIOXIDE LEVEL 25 MEQ/L (21-32); CHLORIDE LEVEL 111 MEQ/L (98-107); CHOLESTEROL LEVEL 203 MG/DL (<200); CHOLESTEROL RISK RATIO 3.123 (<5); CREATININE FOR GFR 0.85 MG/DL (0.55-1.30); FREE T4 0.95 NG/DL (0.76-1.46); GLOMERULAR FILTRATION RATE > 60.0 (>45); GLUCOSE, FASTING 104 MG/DL (70-100); HDL CHOLESTEROL 65 MG/DL (>40); LDL CHOLESTEROL 111 MG/DL (<100); NON-HDL-C 138 MG/DL; POTASSIUM SERUM 3.8 MEQ/L (3.5-5.1); SODIUM LEVEL 144 MEQ/L (136-145); TOTAL PROTEIN 6.7 GM/DL (6.4-8.2); TRIGLYCERIDES LEVEL 137 MG/DL (<150)
[2021-10-17 13:55] LABS: HEMOGLOBIN A1c 5.6 %
== END ==
LOC: M WUC 10:06
PROVIDERS: ATTEND Nurse Practitioner Family
DX: E11.9 Type 2 diabetes mellitus without complications (principal); I83.893 Varicose veins of bilateral lower extremities with other complications; I10 Essential (primary) hypertension; K21.9 Gastro-esophageal reflux disease without esophagitis; R25.2 Cramp and spasm; E78.5 Hyperlipidemia, unspecified; E55.9 Vitamin D deficiency, unspecified

== ENCOUNTER → 2021-11-06 | Outpatient (REF) | payer MEDICARE, OTHER | LOC: M SFHCCLAY 16:06 | PROVIDERS: ATTEND Physician Assistant | DX: R30.0 Dysuria (principal) ==

== ENCOUNTER → 2021-12-27 | Outpatient (REF) | payer MEDICARE, OTHER ==
[2021-12-27 18:29] LABS: BLOOD UREA NITROGEN 21 MG/DL (7-18); CREATININE FOR GFR 0.88 MG/DL (0.55-1.30); GLOMERULAR FILTRATION RATE > 60.0 (>45)
== END ==
LOC: M LABWUC 16:50
PROVIDERS: ATTEND Ophthalmology Neuro-ophthalmology
DX: G90.2 Horner's syndrome (principal)

== ENCOUNTER → 2022-01-10 | Outpatient (CLI) | payer MEDICARE, OTHER ==
[2022-01-10 17:02] LABS: RHEUMATOID FACTOR QUANT < 10.0 IU/ML (<15.0)
== END ==
LOC: M WUC 12:02
PROVIDERS: ATTEND Otolaryngology
DX: H91.90 Unspecified hearing loss, unspecified ear (principal); Z79.899 Other long term (current) drug therapy

== ENCOUNTER → 2022-01-15 | Outpatient (CLI) | payer MEDICARE, OTHER ==
[~2022-01-15] MED LIST changes: +PROHANCE 279.3MG/ML 15ML VIAL ONE; +PROHANCE 279.3MG/ML 5ML VIAL ONE
== END ==
LOC: M PLAIMG 12:52
PROVIDERS: ATTEND Ophthalmology Neuro-ophthalmology
DX: G90.2 Horner's syndrome (principal); M48.02 Spinal stenosis, cervical region; R90.82 White matter disease, unspecified
CPT/HCPCS: 70543; 70553; A9576

== ENCOUNTER → 2022-01-21 | Outpatient (CLI) | payer MEDICARE, OTHER ==
[~2022-01-21] MED LIST changes: -PROHANCE 279.3MG/ML 15ML VIAL ONE; -PROHANCE 279.3MG/ML 5ML VIAL ONE
== END ==
LOC: M RAD 07:04
PROVIDERS: ATTEND Otolaryngology
DX: E04.1 Nontoxic single thyroid nodule (principal)

== ENCOUNTER → 2022-01-24 | Outpatient (CLI) | payer MEDICARE, OTHER ==
[~2022-01-24] MED LIST changes: +PROHANCE 279.3MG/ML 15ML VIAL As Ordered ONE; +PROHANCE 279.3MG/ML 5ML VIAL As Ordered ONE
== END ==
LOC: M RAD 06:46
PROVIDERS: ATTEND Otolaryngology
DX: G93.89 Other specified disorders of brain (principal); Z98.890 Other specified postprocedural states; H90.A22 Sensorineural hearing loss, unilateral, left ear, with restricted hearing on the contralateral side; H93.12 Tinnitus, left ear
CPT/HCPCS: 70553; A9576

== ENCOUNTER 2022-02-05 10:00 | Outpatient (RCR) | payer MEDICARE, OTHER ==
[~2022-02-05 10:00] MED LIST changes: -PROHANCE 279.3MG/ML 15ML VIAL As Ordered ONE; -PROHANCE 279.3MG/ML 5ML VIAL As Ordered ONE
== END 2022-03-03 ==
LOC: M PT 10:00
PROVIDERS: ATTEND Orthopaedic Surgery
DX: I89.0 Lymphedema, not elsewhere classified (principal)

== ENCOUNTER → 2022-02-07 | Outpatient (CLI) | payer MEDICARE, OTHER | LOC: M WHC 09:58 | PROVIDERS: ATTEND Specialist | DX: Z12.31 Encounter for screening mammogram for malignant neoplasm of breast (principal) ==

== ENCOUNTER → 2022-02-08 | Outpatient (CLI) | payer MEDICARE, OTHER | LOC: M RAD 08:57 | PROVIDERS: ATTEND Registered Nurse | DX: M48.02 Spinal stenosis, cervical region (principal) ==

== ENCOUNTER → 2022-03-24 | Outpatient (REF) | payer MEDICARE, OTHER ==
[2022-03-24 18:03] LABS: BASO # 0.1 10^3/uL (0.0-0.2); BASO % 1.6 % (0.0-1.0); EOS # 0.4 10^3/uL (0.0-0.5); EOS % 5.2 % (0.0-3.0); HEMATOCRIT 39.3 % (36.0-47.0); LYMPH # 1.4 10^3/uL (1.5-5.0); LYMPH % 21.6 % (24.0-44.0); MEAN CORPUSCULAR HEMOGLOBIN 30.3 pg (27.0-33.0); MEAN CORPUSCULAR HGB CONC 33.1 g/dl (32.0-36.5); MEAN CORPUSCULAR VOLUME 91.6 fl (80.0-96.0); MONO # 0.7 10^3/uL (0.0-0.8); MONO % 10.3 % (2.0-8.0); NEUTROPHILS # 4.1 10^3/uL (1.5-8.5); NEUTROPHILS % 61.2 % (36.0-66.0); PLATELET COUNT, AUTOMATED 312 10^3/uL (150-450); RED BLOOD COUNT 4.29 10^6/uL (4.00-5.40); WHITE BLOOD COUNT 6.7 10^3/uL (4.0-10.0)
[2022-03-24 18:14] LABS: INR 0.92; PROTHROMBIN TIME 12.6 SECONDS (12.5-14.5)
[2022-03-24 18:46] LABS: ALT/SGPT 31 U/L (7.0-40); BILIRUBIN,TOTAL 0.9 MG/DL (0.3-1.2); BLOOD UREA NITROGEN 17 MG/DL (9-23); CARBON DIOXIDE LEVEL 25 MMOL/L (20-31); CHLORIDE LEVEL 103 MMOL/L (98-107); CREATININE FOR GFR 0.83 MG/DL (0.55-1.30); GLOMERULAR FILTRATION RATE > 60.0 (>45); GLUCOSE, FASTING 109 MG/DL (74-106); POTASSIUM SERUM 3.7 MMOL/L (3.5-5.1); SODIUM LEVEL 140 MMOL/L (136-145); TOTAL PROTEIN 6.7 G/DL (5.7-8.2)
== END ==
LOC: M SFHCCLAY 09:19
PROVIDERS: ATTEND Nurse Practitioner Family
DX: G90.2 Horner's syndrome (principal); Z79.01 Long term (current) use of anticoagulants

== ENCOUNTER → 2022-07-22 | Outpatient (REF) | payer MEDICARE, OTHER ==
[2022-07-22 11:24] LABS: BASO # 0.1 10^3/uL (0.0-0.2); BASO % 1.2 % (0.0-1.0); EOS # 0.4 10^3/uL (0.0-0.5); EOS % 4.8 % (0.0-3.0); HEMATOCRIT 38.4 % (36.0-47.0); HEMOGLOBIN 12.4 g/dl (12.0-15.5); LYMPH # 1.3 10^3/uL (1.5-5.0); LYMPH % 16.7 % (24.0-44.0); MEAN CORPUSCULAR HEMOGLOBIN 29.3 pg (27.0-33.0); MEAN CORPUSCULAR HGB CONC 32.3 g/dl (32.0-36.5); MEAN CORPUSCULAR VOLUME 90.8 fl (80.0-96.0); MONO # 0.8 10^3/uL (0.0-0.8); MONO % 9.8 % (2.0-8.0); NEUTROPHILS # 5.2 10^3/uL (1.5-8.5); NEUTROPHILS % 67.2 % (36.0-66.0); PLATELET COUNT, AUTOMATED 265 10^3/uL (150-450); RED BLOOD COUNT 4.23 10^6/uL (4.00-5.40); WHITE BLOOD COUNT 7.8 10^3/uL (4.0-10.0)
[2022-07-22 11:30] LABS: HEMOGLOBIN A1c 5.7 % (4.0-6.0)
[2022-07-22 11:51] LABS: ALBUMIN 3.6 G/DL (3.2-5.2); ALKALINE PHOSPHATASE 102 U/L (46-116); ALT/SGPT 30 U/L (7.0-40); AST/SGOT 28 U/L (<34); BILIRUBIN,TOTAL 1.2 MG/DL (0.3-1.2); BLOOD UREA NITROGEN 18 MG/DL (9-23); CALCIUM LEVEL 8.9 MG/DL (8.3-10.6); CARBON DIOXIDE LEVEL 28 MMOL/L (20-31); CHLORIDE LEVEL 106 MMOL/L (98-107); CHOLESTEROL LEVEL 163 MG/DL (<200); CHOLESTEROL RISK RATIO 3.11 (<5); CREATININE FOR GFR 0.73 MG/DL (0.55-1.30); GLOMERULAR FILTRATION RATE > 60.0 (>45); GLUCOSE, FASTING 93 MG/DL (74-106); HDL CHOLESTEROL 52.3 MG/DL (>40); LDL CHOLESTEROL 72.5 MG/DL (<100); NON-HDL-C 110.7 MG/DL; POTASSIUM SERUM 3.5 MMOL/L (3.5-5.1); SODIUM LEVEL 142 MMOL/L (136-145); TOTAL PROTEIN 6.4 G/DL (5.7-8.2); TRIGLYCERIDES LEVEL 191 MG/DL (<150)
[2022-07-22 11:52] LABS: THYROID STIMULATING HORMONE 1.669 uIU/ML (0.55-4.78); TOTAL 25(OH) VITAMIN D 94.8 NG/ML (20.0-100.0)
[2022-07-22 11:53] LABS: FREE T4 0.96 NG/DL (0.89-1.76)
== END ==
LOC: M SFHCCLAY 09:22
PROVIDERS: ATTEND Nurse Practitioner Family
DX: G90.2 Horner's syndrome (principal); E11.9 Type 2 diabetes mellitus without complications; I10 Essential (primary) hypertension; E78.5 Hyperlipidemia, unspecified; K21.9 Gastro-esophageal reflux disease without esophagitis; E55.9 Vitamin D deficiency, unspecified; I83.893 Varicose veins of bilateral lower extremities with other complications; Z79.899 Other long term (current) drug therapy

== ENCOUNTER 2022-08-06 09:46 | Outpatient (RCR) | payer MEDICARE, OTHER | END 2022-08-31 | LOC: M PT 09:46 | PROVIDERS: ATTEND Orthopaedic Surgery | DX: I89.0 Lymphedema, not elsewhere classified (principal) ==

== ENCOUNTER 2023-02-12 09:54 | Outpatient (RCR) | payer MEDICARE, OTHER | END 2023-03-03 | LOC: M PT 09:54 | PROVIDERS: ATTEND Orthopaedic Surgery | DX: I89.0 Lymphedema, not elsewhere classified (principal) ==

== ENCOUNTER → 2023-03-11 | Outpatient (CLI) | payer MEDICARE, OTHER | LOC: M WHC 09:55 | PROVIDERS: ATTEND Specialist | DX: Z12.31 Encounter for screening mammogram for malignant neoplasm of breast (principal) ==

== ENCOUNTER → 2023-05-15 | Outpatient (CLI) | payer MEDICARE, OTHER | LOC: M PLAIMG 09:41 | PROVIDERS: ATTEND Registered Nurse | DX: M54.16 Radiculopathy, lumbar region (principal); M48.061 Spinal stenosis, lumbar region without neurogenic claudication; M99.63 Osseous and subluxation stenosis of intervertebral foramina of lumbar region ==

== ENCOUNTER → 2023-07-20 | Outpatient (CLI) | payer MEDICARE, OTHER ==
[2023-07-20 12:19] LABS: BASO # 0.1 10^3/uL (0.0-0.2); BASO % 1.2 % (0.0-1.0); EOS # 0.4 10^3/uL (0.0-0.5); EOS % 5.1 % (0.0-3.0); HEMATOCRIT 36.9 % (36.0-47.0); HEMOGLOBIN 12.5 g/dl (12.0-15.5); LYMPH # 1.3 10^3/uL (1.5-5.0); LYMPH % 18.9 % (24.0-44.0); MEAN CORPUSCULAR HEMOGLOBIN 29.6 pg (27.0-33.0); MEAN CORPUSCULAR HGB CONC 33.9 g/dl (32.0-36.5); MEAN CORPUSCULAR VOLUME 87.4 fl (80.0-96.0); MONO # 0.6 10^3/uL (0.0-0.8); MONO % 9.1 % (2.0-8.0); NEUTROPHILS # 4.6 10^3/uL (1.5-8.5); NEUTROPHILS % 65.6 % (36.0-66.0); PLATELET COUNT, AUTOMATED 278 10^3/uL (150-450); RED BLOOD COUNT 4.22 10^6/uL (4.00-5.40); WHITE BLOOD COUNT 6.9 10^3/uL (4.0-10.0)
[2023-07-20 12:27] LABS: PARTIAL THROMBOPLASTIN TIME 25.6 SECONDS (24.8-34.2); PROTHROMBIN TIME 12.9 SECONDS (12.5-14.5)
[2023-07-20 12:42] LABS: ALBUMIN 3.6 G/DL (3.2-5.2); ALKALINE PHOSPHATASE 114 U/L (46-116); ALT/SGPT 34 U/L (7.0-40); AST/SGOT 28 U/L (<34); BILIRUBIN,TOTAL 1.1 MG/DL (0.3-1.2); BLOOD UREA NITROGEN 20 MG/DL (9-23); CALCIUM LEVEL 9.6 MG/DL (8.3-10.6); CARBON DIOXIDE LEVEL 26 MMOL/L (20-31); CHLORIDE LEVEL 107 MMOL/L (98-107); GLOMERULAR FILTRATION RATE > 60.0 (>45); GLUCOSE, FASTING 101 MG/DL (74-106); POTASSIUM SERUM 3.6 MMOL/L (3.5-5.1); SODIUM LEVEL 141 MMOL/L (136-145); TOTAL PROTEIN 6.3 G/DL (5.7-8.2)
== END ==
LOC: M LAB 11:13
PROVIDERS: ATTEND Nurse Practitioner Family
DX: Z01.818 Encounter for other preprocedural examination (principal); G90.2 Horner's syndrome; M48.02 Spinal stenosis, cervical region; Z79.01 Long term (current) use of anticoagulants

== ENCOUNTER → 2023-07-27 | Outpatient (REF) | payer MEDICARE, OTHER | LOC: M SFHCCLAY 09:37 | PROVIDERS: ATTEND Nurse Practitioner Family | DX: M48.02 Spinal stenosis, cervical region (principal); G90.2 Horner's syndrome; E11.9 Type 2 diabetes mellitus without complications; I10 Essential (primary) hypertension; H93.11 Tinnitus, right ear; H90.5 Unspecified sensorineural hearing loss; E78.5 Hyperlipidemia, unspecified; K21.9 Gastro-esophageal reflux disease without esophagitis; E55.9 Vitamin D deficiency, unspecified; I83.893 Varicose veins of bilateral lower extremities with other complications ==

== ENCOUNTER → 2023-08-17 | Outpatient (REF) | payer MEDICARE, OTHER | LOC: M SFHCCLAY 10:27 | PROVIDERS: ATTEND Physician Assistant | DX: R30.0 Dysuria (principal) ==

== ENCOUNTER 2023-08-19 09:48 | Outpatient (RCR) | payer MEDICARE, OTHER | END 2023-09-01 | LOC: M PT 09:48 | PROVIDERS: ATTEND Orthopaedic Surgery | DX: I89.0 Lymphedema, not elsewhere classified (principal) ==

== ENCOUNTER → 2024-01-15 | Outpatient (REF) | payer MEDICARE, OTHER | LOC: M SFHCCLAY 15:39 | PROVIDERS: ATTEND Physician Assistant | DX: R30.0 Dysuria (principal) ==

== ENCOUNTER 2024-02-24 09:46 | Outpatient (RCR) | payer MEDICARE, OTHER | END 2024-03-03 | LOC: M PT 09:46 | PROVIDERS: ATTEND Orthopaedic Surgery | DX: I89.0 Lymphedema, not elsewhere classified (principal) ==

== ENCOUNTER 2024-11-09 09:05 | Outpatient (RCR) | payer MEDICARE, OTHER ==
[~2024-11-09 09:05] MED LIST changes: +LIFI1DRO4 OS; -XIID5DRO OS
== END 2024-12-01 ==
LOC: M PT 09:05
PROVIDERS: ATTEND Orthopaedic Surgery
DX: I89.0 Lymphedema, not elsewhere classified (principal)

== ENCOUNTER 2025-03-17 09:25 | Outpatient (RCR) | payer MEDICARE, OTHER | END 2025-04-02 | LOC: M PT 09:25 | PROVIDERS: ATTEND Orthopaedic Surgery | DX: I83.893 Varicose veins of bilateral lower extremities with other complications (principal) ==